=== PATIENT | male | born 1980 | race Caucasian/White ===

== ENCOUNTER 2020-02-14 07:20 | Emergency (ER) | payer MEDICAID, OTHER, SELFPAY ==
[~2020-02-14] VITALS: Ht 175.3 cm; Wt 75.0 kg
[2020-02-14 08:33] VITALS: BP 125/77
--- NOTE | 2020-02-14 08:37 | NUR ---
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 PT REPORTS MILD COUGH THAT BEGAN AFTER EXPOSURE, DENIES PAIN. VSS. PT RESTING IN ROOM W/ FRIEND AT BEDSIDE. RESP EVEN AND UNLABORED, NADN. AWAITING CXR RESULTS.
--- NOTE | 2020-02-14 08:38 | NUR ---
TELEPHONE CALL TO RAD REGARDING CXR STATUS. TECH REPORTS HE WILL INVESTIGATE.
== END 2020-02-14 09:33 | disposition home or self-care (01) ==
LOC: ED 08:08
DX: T59.811A Toxic effect of smoke, accidental (unintentional), initial encounter (principal); J68.8 Other respiratory conditions due to chemicals, gases, fumes and vapors; R07.9 Chest pain, unspecified; Z20.89 Contact with and (suspected) exposure to other communicable diseases; X58.XXXA Exposure to other specified factors, initial encounter; Y93.89 Activity, other specified; Y92.89 Other specified places as the place of occurrence of the external cause; Y99.8 Other external cause status
CPT/HCPCS: 36415; 71045; 82375; 86705; 86706; 86803; 87340; 87806; 99284; G0475